=== PATIENT | female | born 1965 | race Caucasian/White ===

== ENCOUNTER 2018-05-14 11:29 | Outpatient (CLI) | payer OTHER | END 2018-05-14 11:30 | disposition home or self-care (01) | LOC: BICMAMMO 11:29 | PROVIDERS: ATTEND Obstetrics & Gynecology | DX: Z12.31 Encounter for screening mammogram for malignant neoplasm of breast (principal); N63.20 Unspecified lump in the left breast, unspecified quadrant | CPT/HCPCS: 77063; 77067 ==

== ENCOUNTER 2018-05-29 12:34 | Outpatient (CLI) | payer OTHER ==
--- NOTE | 2018-05-29 13:32 | ULT ---
LIMITED LEFT BREAST ULTRASOUND: Date: 05-29-18 Provided Clinical History: Abnormal mammogram. FINDINGS: Limited sonographic interrogation was performed of the left breast at the 1 o'clock position, demonst rating a 9 mm simple cyst, corresponding to the mammographic finding. IMPRESSION: BIRADS category 2 - benign findings. Return to annual screening mammography recommended. POS: [facility]
== END 2018-05-29 12:35 | disposition home or self-care (01) ==
LOC: BICMAMMO 12:34
PROVIDERS: ATTEND Obstetrics & Gynecology
DX: R92.2 Inconclusive mammogram (principal); N63.21 Unspecified lump in the left breast, upper outer quadrant
CPT/HCPCS: G0279